=== PATIENT | male | born 1995 | race Caucasian/White ===

== ENCOUNTER 2023-08-10 10:11 | Outpatient (RCR) | payer OTHER ==
[~2023-08-10 10:11] MED LIST: ZYRTEC 10MG10 MG PO
== END 2023-08-20 ==
LOC: WSOH
DX: S93.401D Sprain of unspecified ligament of right ankle, subsequent encounter (principal); Y99.0 Civilian activity done for income or pay

== ENCOUNTER 2023-08-24 09:33 | Outpatient (RCR) | payer OTHER | END 2023-09-20 | disposition home or self-care (01) | LOC: WSOH | DX: S93.401D Sprain of unspecified ligament of right ankle, subsequent encounter (principal); Y99.0 Civilian activity done for income or pay ==